=== PATIENT | female | born 1925 | race Caucasian/White ===

== ENCOUNTER → 2016-10-09 | Outpatient (CLI) | payer OTHER, MEDICARE ==
[~2016-10-09] MED LIST: ALDACTONE 25MG25 MG PO; ASPIR 8181 MG PO; CITALOPRAM HBR10 MG PO; CLARITIN 10MG T10 MG PO; COREG 3.125M3.125 MG PO; ELIQUIS2.5 MG PO; K-TAB ER20 MEQ PO; LASIX40 MG PO; LEVAQUIN250 MG PO; LIPITOR10 MG PO; LISINOPRIL2.5 MG PO; MELATONIN3 MG PO; MIRALAX17 GM PO; OMEPRAZOLE40 MG PO; TYLENOL W/CODEIN1 E1 PO
== END ==
LOC: HEART 5 13:00
DX: I25.5 Ischemic cardiomyopathy (principal); I50.22 Chronic systolic (congestive) heart failure; T82.198A Other mechanical complication of other cardiac electronic device, initial encounter; I34.0 Nonrheumatic mitral (valve) insufficiency
CPT/HCPCS: 93306

== ENCOUNTER → 2016-10-22 | Outpatient (CLI) | payer MEDICARE, OTHER ==
[2016-10-22 07:58] LABS: HEMOGLOBIN 9.8 gm/dl (12.3-15.3); RED BLOOD COUNT 3.16 M/UL (4.00-5.10); WHITE BLOOD COUNT 5.6 K/UL (4.5-11.0)
== END | disposition home or self-care (01) ==
LOC: CATH 06:56
PROVIDERS: Internal Medicine Cardiovascular Disease
DX: Z45.02 Encounter for adjustment and management of automatic implantable cardiac defibrillator (principal); I11.0 Hypertensive heart disease with heart failure; I50.22 Chronic systolic (congestive) heart failure; I48.2 Chronic atrial fibrillation; I49.5 Sick sinus syndrome; I25.5 Ischemic cardiomyopathy; I25.10 Atherosclerotic heart disease of native coronary artery without angina pectoris; E78.5 Hyperlipidemia, unspecified; Z95.1 Presence of aortocoronary bypass graft; I34.0 Nonrheumatic mitral (valve) insufficiency; I25.2 Old myocardial infarction; Z79.02 Long term (current) use of antithrombotics/antiplatelets; Z88.5 Allergy status to narcotic agent; Z79.82 Long term (current) use of aspirin; Z79.899 Other long term (current) drug therapy
CPT/HCPCS: 71010; 80048; 85025; C1721; J2250; J3010; J3370; J7040; J7050